=== PATIENT | male | born 1950 | race Caucasian/White ===

== ENCOUNTER 2017-10-06 07:05 | Day surgery (SDC) | payer MEDICARE, BC ==
[2017-10-06] MEDS ORDERED: Lactated Ringers 1,000 ML IV SCH (07:15)
[2017-10-06] MEDS ORDERED: Sodium Chloride 0.9% 10 ML Syringe FLUSH PRN (07:15)
[2017-10-06] MEDS ORDERED: Propofol 200 MG/20 ML SDV IV ONE (08:45)
[2017-10-06] MEDS ORDERED: Midazolam 1 MG/ML 2 ML SDV IV ONE (08:45)
[2017-10-06] MEDS ORDERED: Simethicone Drops 40 MG/0.6 ML 30 ML Bottle ONE (08:59)
--- NOTE | 2017-10-06 09:27 | PCM.OPNOTE ---
- General Post-Op/Procedure Note Date of Surgery/Procedure: 10/06/17 Operative Procedure(s): c scope with bx Findings: sigmoid polyp Pre Op Diagnosis: screening Post-Op Diagnosis: sigmoid polyp Anesthesia Technique: MAC Primary Surgeon: Fahad Good Anesthesia Provider: Ellyn Dalal Pathology: sigmoid polyp Complications: None Condition: Good Free Text/Narrative:: see dictation
--- NOTE | 2017-10-06 10:02 | OR ---
DATE OF OPERATION: 10/06/2017 SURGEON: Fahad Good MD PROCEDURE PERFORMED: Colonoscopy with cold forceps biopsy. PREOPERATIVE DIAGNOSIS: Need for screening C scope. POSTOPERATIVE DIAGNOSIS: Sigmoid colon polyp. INDICATIONS FOR PROCEDURE: This is a 66-year-old white male, who presents for screening colonoscopy. He was offered and accepted same. DESCRIPTION OF PROCEDURE: After an excellent IV sedation was administered, digital rectal exam was performed. No marked abnormality was noted. Flexible colonoscope was inserted and advanced to the cecum without difficulty. The prep was excellent. The following findings were noted: Ascending colon, unremarkable. Transverse colon, unremarkable. Descending colon, unremarkable. Sigmoid, a small lesion approximately 3 mm in size biopsied with a single loop biopsy forceps and sent for permanent. The remainder of the sigmoid and rectum were unremarkable. Colon was deflated. The scope was removed. The patient tolerated the procedure well, and was taken to recovery in good condition. /[id number] /ELIL
[2017-10-06 13:45] VITALS: BP 143/86
== END 2017-10-06 11:00 | disposition home or self-care (01) ==
LOC: FB.SDS 07:05
PROVIDERS: ATTEND Surgery
DX: Z12.11 Encounter for screening for malignant neoplasm of colon (principal); D12.5 Benign neoplasm of sigmoid colon; K63.89 Other specified diseases of intestine; E78.5 Hyperlipidemia, unspecified; Z98.890 Other specified postprocedural states; Z79.899 Other long term (current) drug therapy
CPT/HCPCS: 00812; 45380; 88305; A9270; J2250; J2704; J7120

== ENCOUNTER 2018-11-21 14:50 | Inpatient (IN) | payer MEDICARE, BC ==
[2018-11-21] MEDS ORDERED: Ondansetron 4 MG Tab.DIS PO PRN (15:25)
[2018-11-21] MEDS ORDERED: Sodium Chloride 0.9% 10 ML Syringe FLUSH PRN (15:25)
[2018-11-21] MEDS ORDERED: Aspirin 81 MG Tab.Chew PO ONE (15:29)
[2018-11-21] MEDS ORDERED: Diltiazem 25 MG/5 ML SDV IVPUSH ONE ×2 (15:31→17:01)
[2018-11-21] MEDS ORDERED: Sodium Chloride 0.9% 1,000 ML IV SCH (16:00)
[2018-11-21] MEDS ORDERED: Diltiazem 100 MG in Sodium Chloride 0.9% 100 ML IV SCH (16:00)
[2018-11-21] MEDS ORDERED: Enoxaparin 40 MG/0.4 ML Syringe SUBCUT SCH (16:30)
--- NOTE | 2018-11-21 20:52 | PCM.PN ---
- General Info Date of Service: 11/21/18 Admission Dx/Problem (Free Text): 67 yo male who awoke this am with dizziness and some weakness. He went to clinic because it persisted and was found to be in a fib with RVR. He had normal labs except for troponin of 0.10. His chest xray was normal. His EKG showed a fib with RVR and no current of injury. He had some shortness of breath with activity but none at rest and had only had fleeting chest pains. He was admitted to [facility] to ICU and placed on diltiazem drip with several boluses (20 mg and then 15 mg) and drip was titrated to 15 mg/hr with no slowing of his a fib. he remained hemodynamically stable with blood pressure in the 100 systolic range. He had repeat troponin which was 0.15 and normal TSH. With trending troponins rising and with continued a fib with rvr, he will need transfer to higher level of care for cardiology services which are not available at [facility]. While calling his primary doctor, he had acute drop in heart rate to 20 range with 3 seconds between heart beats and then what appeared to be a junctional rhythm and then NSR with rate of 50-60. His repeat EKG showed NSR with rate of 54 and had no current of injury or ischemia. No chest pain. no shortness of breath. Blood pressure was 100 systolic and pt was mentating normally. Subjective Update: Pt is pain free and with NSR wiht rate in 50-60's. Dilt drip was stopped. - Review of Systems General: Reports: No Symptoms HEENT: Reports: No Symptoms Pulmonary: Reports: No Symptoms Cardiovascular: Denies: Chest Pain, Palpitations, Lightheadedness Gastrointestinal: Reports: No Symptoms Genitourinary: Reports: No Symptoms Musculoskeletal: Reports: No Symptoms Skin: Denies: Diaphoresis Neurological: Denies: Dizziness, Weakness - Patient Data Vitals - Most Recent: Last Vital Signs Temp 36.9 C 11/21/18 20:13 Pulse 58 L 11/21/18 20:34 Resp 18 11/21/18 20:34 BP 118/70 11/21/18 20:34 Pulse Ox 99 11/21/18 20:34 Weight - Most Recent: 75.115 kg Lab Results Last 24 Hours: Laboratory Results - last 24 hr 11/21/18 11/21/1811/21/19 Range/Units 15:35 15:35 15:35 PT 10.0 (8.7-11.1) INR 1.03 (0.89-1.13) Magnesium 1.8 (1.8-2.5) mg/dL Troponin I (<0.017-0.056) ng/mL TSH, Ultra Sensitive 0.99 (0.36-3.74) IU/mL Urine Color (YELLOW) Urine Appearance (CLEAR) Urine pH (5.0-6.5) Ur Specific [place] (1.010-1.025) Urine Protein (NEGATIVE) mg/dL Urine Glucose (UA) (NORMAL) mg/dL Urine Ketones (NEGATIVE) mg/dL Urine Occult Blood (NEGATIVE) Urine Nitrite (NEGATIVE) Urine Bilirubin (NEGATIVE) Urine Urobilinogen (NEGATIVE) mg/dL Ur Leukocyte Esterase (NEGATIVE) Urine RBC (0-5) Urine WBC (0-5) Ur Squamous Epith Cells (NS,R,O) Urine Bacteria (NS) Urine Mucus (NS) 11/21/18 11/21/18 Range/Units 18:45 19:02 PT (8.7-11.1) INR (0.89-1.13) Magnesium (1.8-2.5) mg/dL Troponin I 0.150 H* (<0.017-0.056) ng/mL TSH, Ultra Sensitive (0.36-3.74) IU/mL Urine Color Yellow (YELLOW) Urine Appearance Clear (CLEAR) Urine pH 5.0 (5.0-6.5) Ur Specific [place] 1.015 (1.010-1.025) Urine Protein Negative (NEGATIVE) mg/dL Urine Glucose (UA) Normal (NORMAL) mg/dL Urine Ketones 15 H (NEGATIVE) mg/dL Urine Occult Blood Negative (NEGATIVE) Urine Nitrite Negative (NEGATIVE) Urine Bilirubin Negative (NEGATIVE) Urine Urobilinogen Normal (NEGATIVE) mg/dL Ur Leukocyte Esterase Negative (NEGATIVE) Urine RBC Not seen (0-5) Urine WBC 0-5 (0-5) Ur Squamous Epith Cells Few H (NS,R,O) Urine Bacteria Few H (NS) Urine Mucus Few H (NS) Med Orders - Current: Current Medications Aspirin (Ecotrin) 325 mg PO DAILY JOSE Enoxaparin Sodium (Lovenox) 40 mg SUBCUT Q24H JOSE Last Admin: 11/21/18 16:32 Dose: 40 mg Diltiazem HCl 100 mg/ Sodium (Chloride) 100 mls @ 5 mls/hr IV TITRATE JOSE; Protocol Last Titration: 11/21/18 18:00 Dose: 15 mg/hr, 15 mls/hr Sodium Chloride (Normal Saline) 1,000 mls @ 30 mls/hr IV ASDIRECTED JOSE Last Admin: 11/21/18 16:10 Dose: 30 mls/hr Ondansetron HCl (Zofran Odt) 4 mg PO Q4H PRN PRN Reason: nausea, able to take PO Sodium Chloride (Saline Flush) 10 ml FLUSH ASDIRECTED PRN PRN Reason: Keep Vein Open Last Admin: 11/21/18 15:01 Dose: 10 ml Discontinued Medications Aspirin (Aspirin) 324 mg PO ONETIME ONE Stop: 11/21/18 15:30 Last Admin: 11/21/18 15:30 Dose: 324 mg Diltiazem HCl (Diltiazem) 20 mg IVPUSH ONETIME ONE Stop: 11/21/18 15:32 Last Admin: 11/21/18 15:30 Dose: 20 mg Diltiazem HCl (Diltiazem) 15 mg IVPUSH ONETIME ONE Stop: 11/21/18 17:02 Last Admin: 11/21/18 17:10 Dose: 15 mg - Exam General: Alert, Oriented HEENT: Pupils Equal, Pupils Reactive, EOMI, Mucous Membr. Moist/[place] Neck: Supple Lungs: Clear to Auscultation, Normal Respiratory Effort Cardiovascular: Regular Rate, Regular Rhythm, Other (initially, pt with irregularly irregular rate and rhythm with rate in 160's and then conversion to NSR as above.) GI/Abdominal Exam: Normal Bowel Sounds, Soft, Non-Tender, No Organomegaly, No Distention, No Abnormal Bruit, No Mass, Pelvis Stable Back Exam: Normal Inspection, Full Range of Motion Extremities: No Pedal Edema, Normal Capillary Refill Peripheral Pulses: 2+: Radial (L), Radial (R), Dorsalis Pedis (L), Dorsalis Pedis (R) Skin: Warm, Dry, Intact Neurological: Other (no change) Psy/Mental Status: Alert, Normal Affect, Normal Mood EKG INTERPRETATION EKG Date: 11/21/18 Time: 19:10 Rhythm: A-Fib Rate (Beats/Min): 157 [place]: Normal P-Wave: Absent QRS: Normal Comparison: No Change EKG Interpretation Comments: a fib with rvr and no change from previous Repeat EKG at 1955 hrs: NSR with rate of 54. normal axis and normal intervals. Ns st-t changes. - Problem List & Annotations (1) Atrial fibrillation SNOMED Code(s): 83919964 Code(s): I48.91 - UNSPECIFIED ATRIAL FIBRILLATION Status: Acute Priority : High Qualifiers: Atrial fibrillation type: paroxysmal Qualified Code(s): I48.0 - Paroxysmal atrial fibrillation - Problem List Review Problem List Initiated/Reviewed/Updated: Yes - Assessment Assessment:: A fib with RVR, converted Elevated troponin - Plan Plan:: Pt to be transferred to [facility] in [place]. D/W Dr Marquez and he will accept patient in transfer. He recommended Lovenox 40 mg SC and nothing further. Dilt drip has been stopped. He will be transferred via ALS ambulance to [facility] in [place] for direct admission.
[2018-11-21] MEDS ORDERED: Enoxaparin 40 MG/0.4 ML Syringe SUBCUT ONE (21:02)
[2018-11-21 21:17] VITALS: BP 106/63
--- NOTE | 2018-11-22 08:19 | PCM.DCSUM1 ---
Discharge Summary - Hospital Course Free Text/Narrative:: Hospital course-he was given Cardizem 20 mg and then reposited 50 mg and on a drip. He was turned over to the ER doc who started to manage him. His second troponin was little bit higher and then he converted. The ER doc felt uncomfortable keeping him here because of his troponin trending up so he was transferred to [place]. Patient had no chest pain or shortness of breath. He denied any palpitations. Brief History: 67-year-old male patient came to the clinic with neck pain, dizziness and weakness. He was found to be in rapid A. fib and sent to the hospital for admission. His troponin was slightly elevated. - Discharge Data Discharge Date: 11/22/18 Discharge Disposition: DC/Tfer to Acute Hospital 02 Condition: Good - Patient Instructions Diet: NPO Activity: As Tolerated Driving: Do Not Drive Showering/Bathing: November Shower - Discharge Plan Home Medications: Home Meds Triamcinolone Acetonide [Kenalog 0.1% Crm] 1 applic TOP ASDIRECTED 06/12/14 [ History] - Discharge Summary/Plan Comment DC Time >30 min.: Yes Discharge Summary/Plan Comment: Transfer to [place] by [facility] ambulance - Patient Data Vitals - Most Recent: Last Vital Signs Temp 98.4 F 11/21/18 20:13 Pulse 55 L 11/21/18 21:16 Resp 18 11/21/18 21:16 BP 106/63 11/21/18 21:16 Pulse Ox 98 11/21/18 21:16 Weight - Most Recent: 165 lb 9.6 oz I&O - Last 24 hours: Intake & Output 11/21/18 11/22/18 11/22/18 22:59 06:59 14:59 Intake Total 295 Balance 295 Lab Results - Last 24 hrs: Laboratory Results - last 24 hr 11/21/18 11/21/18 11/21/18 Range/Units 15:35 15:35 15:35 PT 10.0 (8.7-11.1) INR 1.03 (0.89-1.13) Magnesium 1.8 (1.8-2.5) mg/dL Troponin I (<0.017-0.056) ng/mL TSH, Ultra Sensitive 0.99 (0.36-3.74) IU/mL Urine Color (YELLOW) Urine Appearance (CLEAR) Urine pH (5.0-6.5) Ur Specific [place] (1.010-1.025) Urine Protein (NEGATIVE) mg/dL Urine Glucose (UA) (NORMAL) mg/dL Urine Ketones (NEGATIVE) mg/dL Urine Occult Blood (NEGATIVE) Urine Nitrite (NEGATIVE) Urine Bilirubin (NEGATIVE) Urine Urobilinogen (NEGATIVE) mg/dL Ur Leukocyte Esterase (NEGATIVE) Urine RBC (0-5) Urine WBC (0-5) Ur Squamous Epith Cells (NS,R,O) Urine Bacteria (NS) Urine Mucus (NS) 11/21/18 11/21/18 Range/Units 18:45 19:02 PT (8.7-11.1) INR (0.89-1.13) Magnesium (1.8-2.5) mg/dL Troponin I 0.150 H* (<0.017-0.056) ng/mL TSH, Ultra Sensitive (0.36-3.74) IU/mL Urine Color Yellow (YELLOW) Urine Appearance Clear (CLEAR) Urine pH 5.0 (5.0-6.5) Ur Specific [place] 1.015 (1.010-1.025) Urine Protein Negative (NEGATIVE) mg/dL Urine Glucose (UA) Normal (NORMAL) mg/dL Urine Ketones 15 H (NEGATIVE) mg/dL Urine Occult Blood Negative (NEGATIVE) Urine Nitrite Negative (NEGATIVE) Urine Bilirubin Negative (NEGATIVE) Urine Urobilinogen Normal (NEGATIVE) mg/dL Ur Leukocyte Esterase Negative (NEGATIVE) Urine RBC Not seen (0-5) Urine WBC 0-5 (0-5) Ur Squamous Epith Cells Few H (NS,R,O) Urine Bacteria Few H (NS) Urine Mucus Few H (NS) Med Orders - Current: Current Medications Discontinued Medications Aspirin (Aspirin) 324 mg PO ONETIME ONE Stop: 11/21/18 15:30 Last Admin: 11/21/18 15:30 Dose: 324 mg Aspirin (Ecotrin) 325 mg PO DAILY JOSE Diltiazem HCl (Diltiazem) 20 mg IVPUSH ONETIME ONE Stop: 11/21/18 15:32 Last Admin: 11/21/18 15:30 Dose: 20 mg Diltiazem HCl (Diltiazem) 15 mg IVPUSH ONETIME ONE Stop: 11/21/18 17:02 Last Admin: 11/21/18 17:10 Dose: 15 mg Enoxaparin Sodium (Lovenox) 40 mg SUBCUT Q24H JOSE Last Admin: 11/21/18 16:32 Dose: 40 mg Enoxaparin Sodium (Lovenox) 40 mg SUBCUT ONETIME ONE Stop: 11/21/18 21:03 Last Admin: 11/21/18 21:16 Dose: 40 mg Diltiazem HCl 100 mg/ Sodium (Chloride) 100 mls @ 5 mls/hr IV TITRATE JOSE; Protocol Stop: 11/21/18 19:50 Last Titration: 11/21/18 19:50 Dose: 0 mg/hr, 0 mls/hr Sodium Chloride (Normal Saline) 1,000 mls @ 30 mls/hr IV ASDIRECTED JOSE Last Admin: 11/21/18 16:10 Dose: 30 mls/hr Ondansetron HCl (Zofran Odt) 4 mg PO Q4H PRN PRN Reason: nausea, able to take PO Sodium Chloride (Saline Flush) 10 ml FLUSH ASDIRECTED PRN PRN Reason: Keep Vein Open Last Admin: 11/21/18 15:01 Dose: 10 ml
[2018-11-22] MEDS ORDERED: Aspirin 325 MG Tab.EC PO SCH (09:00)
== END 2018-11-21 22:00 | DRG 310 ==
LOC: FB.ICU 14:50 → UNDOADMIN 15:01
PROVIDERS: ADMIT Family Medicine; ATTEND Family Medicine
DX: I48.0 Paroxysmal atrial fibrillation (principal); R74.8 Abnormal levels of other serum enzymes; F17.220 Nicotine dependence, chewing tobacco, uncomplicated; E78.2 Mixed hyperlipidemia
CPT/HCPCS: 36415; 81001; 83735; 84443; 84484; 85610; 93005; A9270-GY; J1650; J3490; J7030

== ENCOUNTER 2024-04-15 10:58 | Emergency (ER) | payer MEDICARE, BC ==
[2024-04-15] MEDS: Lidocaine 2% HCl 6 ML Jel ONE (11:19)
[2024-04-15 11:45] VITALS: BP 165/96; PULSE 73
[2024-04-15 11:49] LABS: BILIRUBIN,URINE NEGATIVE (NEGATIVE); GLUCOSE,URINE NORMAL (NORMAL); KETONES,URINE NEGATIVE (NEGATIVE); LEUKOCYTE ESTERASE,URINE LARGE (NEGATIVE); NITRITE,URINE POSITIVE (NEGATIVE); OCCULT BLOOD,URINE MODERATE (NEGATIVE); PROTEIN,URINE NEGATIVE (NEGATIVE); UROBILINOGEN,URINE NORMAL (NEGATIVE)
[2024-04-15 11:53] LABS: APPEARANCE,URINE CLOUDY (CLEAR); COLOR,URINE YELLOW (YELLOW); WBC,URINE 75-100 (0-5)
[2024-04-15 11:54] LABS: BACTERIA,URINE MANY (NS); SQUAMOUS EPITHELIAL CELLS,UR RARE (NS,R,O)
== END 2024-04-15 12:22 | disposition home or self-care (01) ==
LOC: FB.ED 10:58
DX: T83.098A Other mechanical complication of other urinary catheter, initial encounter (principal); N39.0 Urinary tract infection, site not specified; Z90.49 Acquired absence of other specified parts of digestive tract; X58.XXXA Exposure to other specified factors, initial encounter
CPT/HCPCS: 51702; 51798; 81001; 87086; 87088; 87186; 99284; A9270